=== PATIENT | female | born 1995 | race Caucasian/White ===

== ENCOUNTER → 2017-01-09 | Outpatient (CLI) | payer BC ==
[2016-06-23 22:14] VITALS: BP 145/80
[2017-01-09 15:20] LABS: RAPID PLASMA REAGIN NONREACTIVE (NONREACTIVE); RUBELLA IGG ANTIBODY POSITIVE (POSITIVE)
[2017-01-09 16:51] LABS: CHLAMYDIA TRACH URINE NOT DETECTED (NOT DETECT)
[2017-01-14 13:01] LABS: VITAMIN D 25 OH 41 ng/mL (30-80)
== END ==
LOC: LAB 13:50
PROVIDERS: ATTEND Obstetrics & Gynecology Reproductive Endocrinology
DX: Z11.3 Encounter for screening for infections with a predominantly sexual mode of transmission (principal)
CPT/HCPCS: 36415; 82306; 82607; 86592; 86701; 86762; 86787; 86803; 87340; 87491; 87591

== ENCOUNTER → 2017-03-14 | Outpatient (CLI) | payer BC ==
[2016-06-23 22:14] VITALS: BP 145/80
== END ==
LOC: LAB 07:20
PROVIDERS: ATTEND Obstetrics & Gynecology
DX: Z32.00 Encounter for pregnancy test, result unknown (principal)
CPT/HCPCS: 36415; 84702

== ENCOUNTER → 2017-03-18 | Outpatient (CLI) | payer BC ==
[2016-06-23 22:14] VITALS: BP 145/80
== END ==
LOC: LAB 09:32
PROVIDERS: ATTEND Obstetrics & Gynecology
DX: Z32.00 Encounter for pregnancy test, result unknown (principal)
CPT/HCPCS: 36415; 84702

== ENCOUNTER 2017-12-06 12:14 | Emergency (ER) | payer OTHER ==
[2017-12-06 12:19] VITALS: BMI 30.8
[2017-12-06 13:00] VITALS: BP 121/74
[2017-12-06 13:14] LABS: BILIRUBIN,URINE NEGATIVE (NEGATIVE); BLOOD/HEMOGLOBIN,URINE 1+ (NEGATIVE); GLUCOSE, URINE NEGATIVE (NEGATIVE); KETONES,URINE NEGATIVE (NEGATIVE); LEUKOCYTE ESTERASE ,URINE 3+ (NEGATIVE); NITRITES,URINE NEGATIVE (NEGATIVE); PROTEIN,URINE 1+ (NEGATIVE); UROBILINOGEN,URINE NORMAL (NORMAL)
[2017-12-06 13:47] LABS: APPEARANCE,URINE HAZY (CLEAR); COLOR,URINE YELLOW (YELLOW)
--- NOTE | 2017-12-06 13:55 | DR.GENAD ---
HPI - PCP Primary Care Physician: Jose M - Complaint/Symptoms Chief Complaint Doctors Comments: I agreer with statement as written. First prgenancy 23 weeks gestation. Denies vomiting, headache or double vision. Admits to urinary frequency and left low back pain. Chief Complaint:: "I am 23 weeks right now. This morning I started having a lot of pain on my left back area. It hurts no matter what I do. 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 - Family History History of Family Medical Conditions: Yes Family Medical History: Diabetes Mellitus, Hypertension - Social History Does patient currently use any type of tobacco product: No Have you used tobacco products in the last 12 months: No Type of Tobacco Use: None Does any household member use tobacco: No Alcohol Use: None Do you use any recreational Drugs:: No Lives With: Family Lives Where: Home - infectious screening In the last 2 months have you had wt loss of >10#?: NO Have you had fever, night sweats or hemotysis?: No Have you traveled outside the country in the last 6 months?: No Isolation: Standard ROS - Review of Systems Eyes: No Symptoms Reported ENTM: No Symptoms Reported Respiratoy: No Symptoms Reported Cardiovascular: No Symptoms Reported Gastrointestinal/Abdominal: No Symptoms Reported Genitourinary: No Symptoms Reported Neurological: No Symptoms Reported Musculoskeletal: No Symptoms Reported Integumentary: No Symptoms Reported Hematologic/Lymphatic: No Symptoms Reported Endocrine: No Symptoms Reported Psychiatric: No Symptoms Reported All Other Systems: Reviewed and Negative PE - Vital Signs Vitals: Temperature 98.3 F Pulse Rate [Left Radial] 106 Pulse Rate 115 Respiratory Rate 16 Blood Pressure [Left Arm] 121/74 Blood Pressure 133/79 O2 Sat by Pulse Oximetry 100 - General Limitations: No Limitations General Appearance: Alert, In No Apparent Distress - Head Head Exam: Normal Inspection, Atraumatic - Eyes Eye exam: Normal Appearance, PERRL, EOMI - ENT ENT Exam: Normal Exam External Ear Exam: Normal External Inspection TM/Canal Exam: Bilateral Normal Nose Exam: Normal Nose Exam, Sinus Tenderness Mouth Exam: Normal Inspection Throat Exam: Normal Inspection - Neck Neck Exam: Normal Inspection - Chest Chest Inspection: Normal Inspection - Respiratory Respiratory Exam: Normal Lung Sounds Bilat Respiratory Exam: Bilateral Clear to Auscultation - Cardiovascular Cardiovascular Exam: Regular Rate, Normal Rhythm - Abdominal Exam Abdominal Exam: Normal Inspection, Normal Bowel Sounds Abdominal Tenderness: negative: RUQ, RLQ, LUQ, LLQ, Epigastrium, Suprapubic, Diffuse, Mild, Moderate, Severe, Other - Extremities Extremities Exam: Normal Inspection. negative: Edema - Back Back Exam: Normal Inspection - Neurologic Neurological Exam: Alert, Oriented X3, CN II-XII Intact - Psychiatric Psychiatric Exam: Normal Affect, Normal Mood - Skin Skin Exam: Warm, Dry, Intact ROR - Labs Reviewed Laboratory Results Reviewed?: Yes (Urine: 3+leukocytes,blood +1,Prot +1) Laboratory: Specimen Type Clean catch urine 12/06/17 12:57 Urine Color Yellow (YELLOW) 12/06/17 12:57 Urine Appearance Hazy (CLEAR) 12/06/17 12:57 Urine pH 6.0 (5.0 - 8.0) 12/06/17 12:57 Ur Specific [place] 1.025 (1.000-1.030) 12/06/17 12:57 Urine Protein 1+ (NEGATIVE) 12/06/17 12:57 Urine Glucose (UA) Negative (NEGATIVE) 12/06/17 12:57 Urine Ketones Negative (NEGATIVE) 12/06/17 12:57 Urine Occult Blood 1+ (NEGATIVE) 12/06/17 12:57 Urine Nitrite Negative (NEGATIVE) 12/06/17 12:57 Urine Bilirubin Negative (NEGATIVE) 12/06/17 12:57 Urine Urobilinogen Normal (NORMAL) 12/06/17 12:57 Ur Leukocyte Esterase 3+ (NEGATIVE) 12/06/17 12:57 Urine RBC Cancelled 12/06/17 12:54 Urine WBC Cancelled 12/06/17 12:54 Ur Squamous Epith Cells Cancelled 12/06/17 12:54 Ur Transition Epith Cell Cancelled 12/06/17 12:54 Ur Renal Epithelial Cell Cancelled 12/06/17 12:54 Calcium Oxalate Crystal Cancelled 12/06/17 12:54 Cystine Crystals Cancelled 12/06/17 12:54 Uric Acid Crystals Cancelled 12/06/17 12:54 Triple Phos Crystals Cancelled 12/06/17 12:54 Tyrosine Crystals Cancelled 12/06/17 12:54 Other Crystals Cancelled 12/06/17 12:54 Amorphous Sediment Cancelled 12/06/17 12:54 Urine Bacteria Cancelled 12/06/17 12:54 Hyaline Casts Cancelled 12/06/17 12:54 Granular Casts Cancelled 12/06/17 12:54 Fine Granular Casts Cancelled 12/06/17 12:54 Coarse Granular Casts Cancelled 12/06/17 12:54 WBC Casts Cancelled 12/06/17 12:54 Other Casts Cancelled 12/06/17 12:54 Urine Mucus Cancelled 12/06/17 12:54 Urine Trichomonas Cancelled 12/06/17 12:54 Urine Yeast Cancelled 12/06/17 12:54 Urine Sperm Cancelled 12/06/17 12:54 Ur Culture Indicated? Cancelled 12/06/17 12:54 Urinalysis Comment Dip only ordered 12/06/17 12:57 - Diagnosis Discharge Problem: UTI (urinary tract infection) in in first trimester - Discharge Plan Condition: Stable - Follow ups/Referrals Follow ups/Referrals: Adonis Bullock [Primary Care Provider] - 3 days - Instructions
== END 2017-12-06 14:11 | disposition home or self-care (01) ==
LOC: ER 12:23
DX: N39.0 Urinary tract infection, site not specified (principal); Z3A.23 23 weeks gestation of pregnancy
CPT/HCPCS: 81003; 99284